=== PATIENT | female | born 1945 | race Caucasian/White ===

== ENCOUNTER → 2017-10-21 | Outpatient (CLI) | payer MEDICARE ==
[~2017-10-21] MED LIST: 24 HOUR ALLERG9.9 ML INH; ALDACTONE50 MG PO; ALLOPURINOL100 MG PO; BENADRYL25 MG PO; EVISTA60 MG PO; LIPITOR40 MG PO; LORAZEPAM0.5 MG PO; MONTELUKAST SOD10 MG PO; SYNTHROID,LEVO75 MCG PO; VENTOLIN 02.5 MG/3 M NEB; ZOCOR20 MG PO; ZYRTEC10 MG PO
== END | disposition home or self-care (01) ==
LOC: RAD 16:08
DX: M25.561 Pain in right knee (principal)

== ENCOUNTER → 2017-11-18 | Day surgery (SDC) | payer MEDICARE ==
[~2017-11-18] VITALS: Ht 162.5 cm; Wt 79.4 kg
--- NOTE | ~2017-11-18 | O ---
[place], [place] OPERATIVE NOTE NAME: RASHEED MELISSA UNIT #: [id number] ROOM: DOCTOR: LIZZY LORD MD BIRTHDATE: [birth year] DOS: 11/18/2017 GASTROENDOSCOPIC REPORT HISTORY OF PRESENT ILLNESS: This is a 72-year-old patient who was presented with history of colonic polyp, undergoing investigation here. ALLERGIES: SEPTRA. FAMILY HISTORY: Noncontributory. PAST SURGICAL HISTORY: Tonsillectomy and ovarian cystectomy. PAST MEDICAL HISTORY: Allergic rhinitis, hypothyroidism, posterior knee and thigh hematoma. SOCIAL HISTORY: Nonsmoker, social alcohol consumer. PROCEDURE: Today's procedure part of investigation is colonoscopy. PREMEDICATION: Versed and propofol. SCOPE: Olympus folding colonoscope 10L video. REPORT: After putting the patient in left lateral position and application of lubricant to the scope, the scope was introduced. Thereafter, under direct visualization, advanced through the length of colon and some difficulty. Difficulty being presence severe diverticulosis of sigmoid colon. Base of the cecum explored, appendiceal orifice identified, ileocecal valve was defined. The patient extubated, tolerated procedure well. IMPRESSION: Severe diverticulosis of colon. PLAN AND DISCUSSION: High fiber food diet. ACTIVITY: Ad-miriam. FOLLOWUP: Two weeks in the office for further confirmation. The patient needs 10 years colonic followup. [place], [place] OPERATIVE NOTE NAME: RASHEED MELISSA UNIT #: [id number] ROOM: DOCTOR: LIZZY LORD MD BIRTHDATE: [birth year] LIZZY LORD MD CM:OPRECORD:OPERATIVE NOTE 0840 LIZZY LORD MD 11/18/1733 interface
[2017-11-18 06:30] VITALS: BP 105/75
[2017-11-18 08:37] VITALS: BP 102/47
[2017-11-18 08:53] VITALS: BP 108/67
[2017-11-18 09:04] VITALS: BP 104/58
[2017-11-18 09:14] VITALS: BP 107/68
== END | disposition home or self-care (01) ==
LOC: SDC 11-12 08:00
DX: K57.30 Diverticulosis of large intestine without perforation or abscess without bleeding (principal); E03.9 Hypothyroidism, unspecified; F41.9 Anxiety disorder, unspecified; J45.909 Unspecified asthma, uncomplicated; M10.9 Gout, unspecified; Z88.1 Allergy status to other antibiotic agents; Z88.2 Allergy status to sulfonamides; Z98.890 Other specified postprocedural states; Z86.010 Personal history of colon polyps; Z87.891 Personal history of nicotine dependence

== ENCOUNTER 2018-01-17 02:28 | Emergency (ER) | payer MEDICARE ==
[~2018-01-17] VITALS: Ht 162.5 cm; Wt 79.4 kg
[~2018-01-17 02:28] MED LIST changes: -LORAZEPAM0.5 MG PO; -ZOCOR20 MG PO
[2018-01-17] MEDS ORDERED: ZOCOR20 MG PO (02:30)
[2018-01-17] MEDS ORDERED: LORAZEPAM0.5 MG PO (02:42)
== END 2018-01-17 03:21 | disposition left against medical advice (07) ==
LOC: ED 02:28
DX: Z46.89 Encounter for fitting and adjustment of other specified devices (principal); M25.532 Pain in left wrist; M79.89 Other specified soft tissue disorders; Z88.2 Allergy status to sulfonamides; Z79.899 Other long term (current) drug therapy

== ENCOUNTER → 2018-03-31 | Outpatient (CLI) | payer MEDICARE ==
[~2018-03-31] MED LIST changes: +LORAZEPAM0.5 MG PO; +ZOCOR20 MG PO
== END | disposition home or self-care (01) ==
LOC: MAMMO 08:58
DX: Z12.31 Encounter for screening mammogram for malignant neoplasm of breast (principal)

== ENCOUNTER 2018-10-24 15:53 | Emergency (ER) | payer MEDICARE ==
[~2018-10-24] VITALS: Ht 162.5 cm; Wt 79.4 kg
== END 2018-10-24 16:38 | disposition home or self-care (01) ==
LOC: ED 15:53
DX: S82.434A Nondisplaced oblique fracture of shaft of right fibula, initial encounter for closed fracture (principal); M79.651 Pain in right thigh; Z79.899 Other long term (current) drug therapy; Z88.2 Allergy status to sulfonamides; W01.0XXA Fall on same level from slipping, tripping and stumbling without subsequent striking against object, initial encounter; Y93.89 Activity, other specified; Y92.89 Other specified places as the place of occurrence of the external cause; Y99.8 Other external cause status

== ENCOUNTER → 2021-04-29 | Outpatient (CLI) | payer MEDICARE | END | disposition home or self-care (01) | LOC: MAMMO 07:26 | PROVIDERS: ATTEND Nurse Practitioner Family | DX: Z12.31 Encounter for screening mammogram for malignant neoplasm of breast (principal) ==

== ENCOUNTER → 2022-03-26 | Outpatient (CLI) | payer MEDICARE ==
[2022-03-26 08:35] LABS: BASO # 0.1 10*3/uL (0.0-0.1); BASO % 0.8 % (0.0-1.0); EOS # 0.2 10*3/uL (0.0-0.4); EOS % 3.5 % (1.0-4.0); HEMATOCRIT 43.6 % (37.0-47.0); LYMPH % 31.3 % (27.0-41.0); MEAN CORPUSCULAR HGB 31.5 pg (27.0-31.0); MEAN CORPUSCULAR HGB CONC 32.8 g/dl (33.0-37.0); MEAN PLATELET VOLUME 9.5 fl (9.6-12.3); MONO # 0.5 10*3/uL (0.1-1.0); MONO % 8.5 % (3.0-9.0); NEUT # 3.5 10*3/uL (2.3-7.9); NEUT % 55.4 % (47.0-73.0); PLATELET COUNT AUTOMATED 281 10*3/uL (130-400); RED BLOOD COUNT 4.54 10*6/uL (4.10-5.10); RED CELL DISTRI WIDTH 12.1 % (0-14.5); WHITE BLOOD COUNT 6.4 10*3/uL (4.8-10.8)
[2022-03-26 08:54] LABS: ALKALINE PHOSPHATASE 108 U/L (46-116); BUN 11 mg/dl (9-23); CHLORIDE 104 mmol/L (98-107); CHOLESTEROL 151 mg/dL (<200); LDL CHOLESTEROL 75 mg/dL (9-159); SGPT/ALT 20 U/L (10-49); THYROID STIM HORMONE (HS) 1.309 uIU/ml (0.550-4.780); TOTAL PROTEIN 6.9 gm/dL (6.0-8.0); TRIGLYCERIDES 184 mg/dl (<150)
== END | disposition home or self-care (01) ==
LOC: LAB 08:10
PROVIDERS: ATTEND Nurse Practitioner Family
DX: E11.9 Type 2 diabetes mellitus without complications (principal); E03.9 Hypothyroidism, unspecified; E78.5 Hyperlipidemia, unspecified; M1A.09X0 Idiopathic chronic gout, multiple sites, without tophus (tophi)

== ENCOUNTER → 2022-06-25 | Outpatient (CLI) | payer MEDICARE ==
[2022-06-25 07:58] LABS: BASO # 0.1 10*3/uL (0.0-0.1); BASO % 0.7 % (0.0-1.0); EOS # 0.3 10*3/uL (0.0-0.4); EOS % 3.9 % (1.0-4.0); HEMATOCRIT 44.6 % (37.0-47.0); LYMPH # 2.4 10*3/uL (1.3-4.4); LYMPH % 34.1 % (27.0-41.0); MEAN CELL VOLUME 96.3 fl (81.0-99.0); MEAN CORPUSCULAR HGB 31.3 pg (27.0-31.0); MEAN CORPUSCULAR HGB CONC 32.5 g/dl (33.0-37.0); MEAN PLATELET VOLUME 9.6 fl (9.6-12.3); MONO # 0.6 10*3/uL (0.1-1.0); MONO % 7.9 % (3.0-9.0); NEUT # 3.7 10*3/uL (2.3-7.9); NEUT % 52.8 % (47.0-73.0); PLATELET COUNT AUTOMATED 251 10*3/uL (130-400); RED BLOOD COUNT 4.63 10*6/uL (4.10-5.10); RED CELL DISTRI WIDTH 12.7 % (0-14.5)
[2022-06-25 08:35] LABS: ALKALINE PHOSPHATASE 106 U/L (46-116); BUN 13 mg/dl (9-23); CHLORIDE 107 mmol/L (98-107); CHOLESTEROL 207 mg/dL (<200); LDL CHOLESTEROL 118 mg/dL (9-159); SGPT/ALT 21 U/L (10-49); THYROID STIM HORMONE (HS) 0.967 uIU/ml (0.550-4.780); TOTAL PROTEIN 7.1 gm/dL (6.0-8.0); TRIGLYCERIDES 225 mg/dl (<150); URIC ACID 5.9 mg/dL (3.1-7.8)
== END | disposition home or self-care (01) ==
LOC: LAB 07:45
PROVIDERS: ATTEND Nurse Practitioner Family
DX: I10 Essential (primary) hypertension (principal); E03.9 Hypothyroidism, unspecified; E11.9 Type 2 diabetes mellitus without complications; M1A.09X0 Idiopathic chronic gout, multiple sites, without tophus (tophi); E78.5 Hyperlipidemia, unspecified

== ENCOUNTER → 2022-09-03 | Outpatient (CLI) | payer MEDICARE | END | disposition home or self-care (01) | LOC: RAD 16:26 | PROVIDERS: ATTEND Nurse Practitioner Family | DX: R91.8 Other nonspecific abnormal finding of lung field (principal); J20.9 Acute bronchitis, unspecified ==

== ENCOUNTER → 2022-10-04 | Outpatient (CLI) | payer MEDICARE | END | disposition home or self-care (01) | LOC: RAD 10:38 | PROVIDERS: ATTEND Nurse Practitioner Family | DX: J20.9 Acute bronchitis, unspecified (principal) ==

== ENCOUNTER → 2023-07-02 | Outpatient (CLI) | payer MEDICARE ==
[2023-07-02 07:29] LABS: BASO # 0.1 10*3/uL (0.0-0.1); BASO % 0.9 % (0.0-1.0); EOS # 0.4 10*3/uL (0.0-0.4); HEMATOCRIT 43.8 % (37.0-47.0); LYMPH # 2.7 10*3/uL (1.3-4.4); LYMPH % 33.8 % (27.0-41.0); MEAN CELL VOLUME 96.9 fl (81.0-99.0); MEAN CORPUSCULAR HGB 31.2 pg (27.0-31.0); MEAN CORPUSCULAR HGB CONC 32.2 g/dl (33.0-37.0); MEAN PLATELET VOLUME 9.2 fl (9.6-12.3); MONO # 0.6 10*3/uL (0.1-1.0); MONO % 8.2 % (3.0-9.0); NEUT # 4.1 10*3/uL (2.3-7.9); NEUT % 51.6 % (47.0-73.0); PLATELET COUNT AUTOMATED 259 10*3/uL (130-400); RED BLOOD COUNT 4.52 10*6/uL (4.10-5.10); RED CELL DISTRI WIDTH 12.9 % (0-14.5); WHITE BLOOD COUNT 7.9 10*3/uL (4.8-10.8)
[2023-07-02 08:22] LABS: ALKALINE PHOSPHATASE 97 U/L (46-116); BUN 18 mg/dl (9-23); CHLORIDE 104 mmol/L (98-107); CHOLESTEROL 202 mg/dL (<200); LDL CHOLESTEROL 117 mg/dL (9-159); POTASSIUM 4.2 mmol/L (3.4-5.1); SGPT/ALT 18 U/L (5-49); TRIGLYCERIDES 216 mg/dl (<150)
== END | disposition home or self-care (01) ==
LOC: LAB 07:10
PROVIDERS: ATTEND Nurse Practitioner Family
DX: E11.42 Type 2 diabetes mellitus with diabetic polyneuropathy (principal); I10 Essential (primary) hypertension; E03.9 Hypothyroidism, unspecified; E78.5 Hyperlipidemia, unspecified

== ENCOUNTER → 2024-08-15 | Outpatient (CLI) | payer MEDICARE | END | disposition home or self-care (01) | LOC: CARD 15:35 | PROVIDERS: ATTEND Nurse Practitioner Primary Care | DX: R07.89 Other chest pain (principal) ==

== ENCOUNTER → 2024-11-10 | Outpatient (CLI) | payer MEDICARE | END | disposition home or self-care (01) | LOC: RAD 04:13 | PROVIDERS: ATTEND Nurse Practitioner Primary Care | DX: M81.0 Age-related osteoporosis without current pathological fracture (principal) ==